=== PATIENT | male | born 1995 | race Caucasian/White ===

== ENCOUNTER 2023-03-10 17:55 | Emergency (ER) | payer OTHER, SELFPAY ==
[2023-03-10 18:11] VITALS: BP 136/81; PULSE 54; RESP 16; TEMP 37.2; O2SAT 97; BMI 22.1
[2023-03-10] MEDS: TET,DIPH,PERTUSS(ACELL),VAC/PF 0.5 ML SYRINGE IM (18:39)
[2023-03-10] MEDS: LIDOCAINE 1% (PF) 5 ML INJ (18:54)
--- NOTE | 2023-03-10 19:19 | ED.WOUNDLAC ---
HPI - Wound/Laceration <Wen Joy PA-C - Last Filed: 03/10/23 19:26> General Chief Complaint: Wound/Laceration Stated Complaint: L mid finger/ cut/ need stitches Time Seen by Provider: 03/10/23 18:31 Source: patient Mode of arrival: Ambulatory History of Present Illness HPI narrative: 27-year-old male here today for laceration on his left 3rd finger that occurred just prior to arrival. States he was using a kitchen knife to cut a squash and it slipped cutting the tip of his finger. He was able to clean it and he denies any numbness or tingling or any difficulty moving his finger. He is unsure of his last tetanus shot but believes it was over 5 years ago at least. Other concerns Related Data Allergies Allergy/AdvReac Type Severity Reaction Status Date / Time No Known Drug Allergies Allergy Verified 03/10/23 18:24 Review of Systems <Wen Joy PA-C - Last Filed: 03/10/23 19:26> Review of Systems ROS Unobtainable: All systems reviewed & are unremarkable except as noted in HPI and below Patient History <Wen Joy PA-C - Last Filed: 03/10/23 19:26> Social History Smoking Status: Former smoker Smoking Status: Former smoker alcohol intake frequency: a few times a month Substance Use Type: marijuana Exam <Wen Joy PA-C - Last Filed: 03/10/23 19:26> Narrative Exam Narrative: GENERAL: [27] year old patient appears stated age. Well-developed patient, in no acute distress. HEAD: Atraumatic. Normocephalic. EYES: Pupils equal round and reactive. Extraocular motions intact. No scleral icterus. No injection or drainage. ENT: Nose without bleeding, purulent drainage. NECK: Trachea midline. Non tender RESPIRATORY: Respiratory rate and effort normal. Extremities: Left 3rd finger with a 1 cm linear laceration to the distal finger on the palmar surface, no nail damage or foreign body noted, very minimal active bleeding NEURO: AOx3. SKIN: No rash or erythema of visible areas Initial Vital Signs Initial Vital Signs: Vital Signs Temperature 99 F 03/10/23 18:11 Pulse Rate 54 L 03/10/23 18:11 Respiratory Rate 16 03/10/23 18:11 Blood Pressure 136/81 03/10/23 18:11 Pulse Oximetry 97 03/10/23 18:11 Oxygen Delivery Method Room Air 03/10/23 18:11 <Latasha Brito DO - Last Filed: 03/18/23 08:12> Initial Vital Signs Initial Vital Signs: Vital Signs Temperature 99 F 03/10/23 18:11 Pulse Rate 54 L 03/10/23 18:11 Respiratory Rate 16 03/10/23 18:11 Blood Pressure 136/81 03/10/23 18:11 Pulse Oximetry 97 03/10/23 18:11 Oxygen Delivery Method Room Air 03/10/23 18:11 Procedures <Wen Joy PA-C - Last Filed: 03/10/23 19:26> Laceration Repair Laceration 1: Time of procedure: 06:55 Site: upper extremity (L 3rd finger ) Size (cm): 1 Description: linear Depth: simple, single layer Local Anesthetic: lidocaine 1% Amount of anesthesia used (mL): 1.5 Pre-repair: irrigated extensively Skin layer closed with: nylon Skin layer suture size: 5-0 Number of sutures: 5 Course <Wen Joy PA-C - Last Filed: 03/10/23 19:26> Orders Ordered: Discontinued Medications Diphtheria/Tetanus/Acell Pertussis (Tet,Diph,Pertuss(Acell),Vac/Pf 0.5 Ml Syringe) 0.5 ml IM .ONCE ONE Stop: 03/10/23 18:25 Last Admin: 03/10/23 18:39 Dose: 0.5 ml Documented By: RL Lidocaine HCl (Lidocaine 1% (Pf) 5 Ml) 5 ml INJ NOW ONE Stop: 03/10/23 18:53 Last Admin: 03/10/23 18:54 Dose: 5 ml Documented By: RL Vital Signs Vital signs: Vital Signs - 8 hr 03/10/23 18:11 Temperature 99 F Pulse Rate 54 L Respiratory Rate 16 Blood Pressure 136/81 Pulse Oximetry 97 Oxygen Delivery Method Room Air <Latasha Brito DO - Last Filed: 03/18/23 08:12> Orders Ordered: Discontinued Medications Diphtheria/Tetanus/Acell Pertussis (Tet,Diph,Pertuss(Acell),Vac/Pf 0.5 Ml Syringe) 0.5 ml IM .ONCE ONE Stop: 03/10/23 18:25 Last Admin: 03/10/23 18:39 Dose: 0.5 ml Documented By: SAMMI Lidocaine HCl (Lidocaine 1% (Pf) 5 Ml) 5 ml INJ NOW ONE Stop: 03/10/23 18:53 Last Admin: 03/10/23 18:54 Dose: 5 ml Documented By: SAMMI Vital Signs Vital signs: Vital Signs - 8 hr 03/10/23 18:11 Temperature 99 F Pulse Rate 54 L Respiratory Rate 16 Blood Pressure 136/81 Pulse Oximetry 97 Oxygen Delivery Method Room Air MDM - Wound/Laceration <Wen Joy PA-C - Last Filed: 03/10/23 19:26> MDM Narrative Medical decision making narrative: Laceration requires repair due to size, location, and lack of approximation on its own without some type of closure. Sutures best for this location and type of laceration. Normal range of motion, sensation, and strength a finger normal cap refill. Five simple interrupted sutures placed. Patient tolerated well. Wound cleaned and bandaged and wound care instructions given. Follow up in 7-8 days for suture removal. Discharge Plan Departure Patient Disposition: Home Clinical Impression: Laceration of finger of left hand Qualifiers: Encounter type: initial encounter Finger: middle finger Damage to nail status: without damage Foreign body presence: without foreign body Qualified Code(s): S61.213A - Laceration without foreign body of left middle finger without damage to nail, initial encounter Instructions: DI for Laceration Repair Activity Restrictions/Additional Instructions: Thank you for coming to our emergency department today. Five stitches were placed in your left middle finger for a laceration. The wound otherwise was uncomplicated and did not appear to have any involvement of your tendon or nerves. Please clean the area with soap and water twice daily and keep it bandaged whenever he will be using your hands throughout the day. Please follow up in 7 8 days for the removal of your stitches. If you see any signs of redness, swelling, increasing pain, or discharge from the wound please return for evaluation immediately. Referrals: Miscellaneous,Doctor, MD [Primary Care Provider] - Stand Alone Forms: Patient Portal/API ED Sign-out <Latasha Brito DO - Last Filed: 03/18/23 08:12> Cosign ED Attending Kelseaature Attestation: I was available for consultation.
[2023-03-10 19:27] VITALS: BP 117/59; PULSE 73; RESP 18
== END 2023-03-10 19:27 | disposition home or self-care (01) ==
PROVIDERS: Emergency Provider Physician Assistant
DX: S61.213A Laceration without foreign body of left middle finger without damage to nail, initial encounter (principal); W26.0XXA Contact with knife, initial encounter; Z23 Encounter for immunization
CPT/HCPCS: 12001; 90471; 99283; 99284; 90715